=== PATIENT | male | born 1975 | race Hispanic/Latino ===

== ENCOUNTER 2020-07-03 | Emergency (ER) | payer OTHER, MEDICAID ==
[~2020-07-03] MED LIST: CEPHALEXIN500 MG OR; LORTAB 5 OR; METFORMIN500 MG PO; ZOFRAN4 MG/TAB PO
[2020-07-03] MEDS ORDERED: LIPITOR40 M1 PO (17:42)
[2020-07-03] MEDS ORDERED: LISINOPRIL2.5 MG PO (17:42)
[2020-07-03] MEDS ORDERED: FISH OIL1 CAP (17:43)
[2020-07-03] MEDS ORDERED: SINGULAIR10 MG PO (17:43)
[2020-07-03] MEDS ORDERED: INVOKAMET 150-51 TAB (17:44)
[2020-07-03 17:50] LABS: HEMATOCRIT 44.1 % (39.0-50.0); IMMATURE GRANULOCYTES 0.5 % (0.0-5.0); MEAN CELL VOLUME 83.4 fL CALC (80.0-100.0); MEAN CORPUSCULAR HGB 28.4 pG CALC (26.0-32.0); NEUT# 3.23 thou/uL (1.82-7.42); RED BLOOD COUNT 5.29 mill/uL (4.70-6.10); RED CELL DISTRI WIDTH 13.5 % (11.5-15.5)
[2020-07-03 18:03] LABS: ACT PARTIAL THROMBO TIME 26.9 SECONDS (20.0-32.5); ALBUMIN 4.4 g/dL (3.2-5.0); ALKALINE PHOSPHATASE 86 u/l (38-126); AMYLASE 46 u/l (30-110); BUN 15 mg/dL (9-20); BUN/CREATININE RATIO 19 (12-20 (CALC)); CARBON DIOXIDE 27 mmol/l (22-30); CHLORIDE 97 mmol/l (95-108); CREATININE 0.8 mg/dL (0.7-1.3); GFR > 60 ML/MIN (>=60 (CALC)); GFR FOR AFR.AMER. > 60 ML/MIN (>=60 (CALC)); INTERNATIONAL NORMALIZED RATIO 1.1 RATIO (0.7-1.3); LIPASE 48 u/l (23-300); POTASSIUM 3.9 mmol/l (3.5-5.1); PROTHROMBIN TIME 10.8 SECONDS (9.0-12.5); SGOT/AST 29 u/l (17-59); TOTAL PROTEIN 8.2 g/dL (6.3-8.2)
[2020-07-03 18:04] LABS: ANION GAP 12 (6-22 (CALC)); BILIRUBIN, TOTAL 1.2 mg/dL (0.0-1.4); SODIUM 132 mmol/l (137-146)
[2020-07-03 18:17] LABS: URINE BILIRUBIN - DIPSTICK NEGATIVE (NEGATIVE); URINE BLOOD DIPSTICK LARGE (NEGATIVE); URINE COLOR YELLOW; URINE GLUCOSE - DIPSTICK >=1000 mg/dL (NEGATIVE); URINE KETONE 15 mg/dL (NEGATIVE); URINE LEUK ESTERASE NEGATIVE (NEGATIVE); URINE PH 5.5 (4.5-8.0); URINE PROTEIN - DIPSTICK >=300 mg/dL (NEG-TRACE); URINE SPECIFIC GRAVITY >=1.030; URINE UROBILINOGEN - DIPSTICK 0.2 E.U./dL (0.2)
[2020-07-03 18:18] LABS: URINE NITRITE - DIPSTICK NEGATIVE (Negative)
[2020-07-03 18:22] LABS: URINE RBC 0-2 RBC/hpf (0-5)
[2020-07-03] MEDS ORDERED: LOMOTIL2.5 MG PO (19:52)
== END 2020-07-03 21:07 | disposition home or self-care (01) | DRG 392 ==
DX: R19.7 Diarrhea, unspecified (principal); R10.84 Generalized abdominal pain; I10 Essential (primary) hypertension; E11.9 Type 2 diabetes mellitus without complications; E78.5 Hyperlipidemia, unspecified; Z79.84 Long term (current) use of oral hypoglycemic drugs; Z20.822 Contact with and (suspected) exposure to COVID-19
CPT/HCPCS: J0131; Q9967

== ENCOUNTER 2020-09-08 20:11 | Emergency (ER) | payer OTHER, MEDICAID ==
[~2020-09-08] VITALS: Ht 180.3 cm; Wt 116.0 kg
[~2020-09-08 20:11] MED LIST changes: +FISH OIL1 CAP; +INVOKAMET 150-51 TAB; +LIPITOR40 M1 PO; +LISINOPRIL2.5 MG PO; +LOMOTIL2.5 MG PO; +SINGULAIR10 MG PO
[2020-09-08] MEDS ORDERED: GLYBURIDE2.5 M1 PO (20:51)
[2020-09-08] MEDS ORDERED: METFORMIN HCL500 M2 PO (20:51)
[2020-09-08] MEDS ORDERED: ASPIRIN81 MG PO (20:52)
[2020-09-08] MEDS ORDERED: VITAMIN B-12500 MCG PO (20:52)
[2020-09-08 21:20] LABS: HEMATOCRIT 43.9 % (39.0-50.0); HEMOGLOBIN 15.4 g/dl (14.0-18.0); IMMATURE GRANULOCYTES 0.1 % (0.0-5.0); MEAN CELL VOLUME 82.4 fL CALC (80.0-100.0); MEAN CORPUSCULAR HGB 28.9 pG CALC (26.0-32.0); MEAN CORPUSCULAR HGB CONC 35.1 g/dL CAL (32.0-36.0); NEUT# 5.21 thou/uL (1.82-7.42); RED BLOOD COUNT 5.33 mill/uL (4.70-6.10); RED CELL DISTRI WIDTH 12.8 % (11.5-15.5)
[2020-09-08 21:22] LABS: URINE BILIRUBIN - DIPSTICK NEGATIVE (NEGATIVE); URINE BLOOD DIPSTICK TRACE-INTACT (NEGATIVE); URINE COLOR YELLOW; URINE GLUCOSE - DIPSTICK >=1000 mg/dL (NEGATIVE); URINE KETONE NEGATIVE (NEGATIVE); URINE LEUK ESTERASE NEGATIVE (NEGATIVE); URINE PH 5.5 (4.5-8.0); URINE PROTEIN - DIPSTICK NEGATIVE (NEG-TRACE); URINE UROBILINOGEN - DIPSTICK 0.2 E.U./dL (0.2)
[2020-09-08 21:25] LABS: URINE NITRITE - DIPSTICK NEGATIVE (Negative)
[2020-09-08 21:36] LABS: ALBUMIN 4.3 g/dL (3.2-5.0); ALKALINE PHOSPHATASE 111 u/l (38-126); ANION GAP 15 (6-22 (CALC)); BUN 21 mg/dL (9-20); BUN/CREATININE RATIO 30 (12-20 (CALC)); CARBON DIOXIDE 24 mmol/l (22-30); CHLORIDE 102 mmol/l (95-108); CREATININE 0.7 mg/dL (0.7-1.3); GFR > 60 ML/MIN (>=60 (CALC)); GFR FOR AFR.AMER. > 60 ML/MIN (>=60 (CALC)); POTASSIUM 4.2 mmol/l (3.5-5.1); SGOT/AST 26 u/l (17-59); SODIUM 137 mmol/l (137-146); TOTAL PROTEIN 7.6 g/dL (6.3-8.2)
[2020-09-08 21:38] LABS: BILIRUBIN, TOTAL 0.3 mg/dL (0.0-1.4)
[2020-09-08] MEDS ORDERED: FLEXERIL5 M1 PO (22:12)
[2020-09-08] MEDS ORDERED: MOTRIN800 MG PO (22:12)
[2020-09-08 22:24] VITALS: BP 123/74
== END 2020-09-08 22:31 | disposition home or self-care (01) | DRG 552 ==
LOC: ED 20:11
DX: M54.5 Low back pain (principal); E11.9 Type 2 diabetes mellitus without complications; I10 Essential (primary) hypertension; E78.00 Pure hypercholesterolemia, unspecified; J45.909 Unspecified asthma, uncomplicated; Z79.84 Long term (current) use of oral hypoglycemic drugs

== ENCOUNTER 2021-10-30 10:36 | Emergency (ER) | payer OTHER, MEDICAID ==
[~2021-10-30] VITALS: Ht 180.3 cm; Wt 116.3 kg
[2021-10-30] VITALS (19 sets, daily range): BP systolic 117–139; BP diastolic 72–97
[~2021-10-30 10:36] MED LIST changes: +ASPIRIN81 MG PO; +FLEXERIL5 M1 PO; +GLYBURIDE2.5 M1 PO; +METFORMIN HCL500 M2 PO; +MOTRIN800 MG PO; +VITAMIN B-12500 MCG PO
[2021-10-30 11:19] LABS: HEMATOCRIT 42.9 % (39.0-50.0); HEMOGLOBIN 15.1 g/dl (14.0-18.0); IMMATURE GRANULOCYTES 0.3 % (0.0-5.0); MEAN CELL VOLUME 82.8 fL CALC (80.0-100.0); MEAN CORPUSCULAR HGB 29.2 pG CALC (26.0-32.0); MEAN CORPUSCULAR HGB CONC 35.2 g/dL CAL (32.0-36.0); NEUT# 5.74 thou/uL (1.82-7.42); RED BLOOD COUNT 5.18 mill/uL (4.70-6.10); RED CELL DISTRI WIDTH 12.7 % (11.5-15.5)
[2021-10-30 11:28] LABS: ALBUMIN 4.6 g/dL (3.2-5.0); ALKALINE PHOSPHATASE 100 u/l (38-126); ANION GAP 16 (6-22 (CALC)); BUN 15 mg/dL (9-20); BUN/CREATININE RATIO 27 (12-20 (CALC)); CARBON DIOXIDE 26 mmol/l (22-30); CHLORIDE 99 mmol/l (95-108); CREATININE 0.6 mg/dL (0.7-1.3); GFR FOR AFR.AMER. > 60 ML/MIN (>=60 (CALC)); GFR OTHER RACES > 60 ML/MIN (>=60 (CALC)); POTASSIUM 4.9 mmol/l (3.5-5.1); SGOT/AST 36 u/l (17-59); SODIUM 137 mmol/l (137-146); TOTAL PROTEIN 8.1 g/dL (6.3-8.2)
[2021-10-30 11:35] LABS: BILIRUBIN, TOTAL 0.7 mg/dL (0.0-1.4)
[2021-10-30] MEDS ORDERED: TRAMADOL HYDROC50 M1 PO (14:41)
[2021-10-30] MEDS ORDERED: ATIVAN1 M1 PO (14:41)
== END 2021-10-30 14:55 | disposition home or self-care (01) | DRG 918 ==
LOC: ED 10:36
PROVIDERS: Family Medicine
DX: T63.311A Toxic effect of venom of black widow spider, accidental (unintentional), initial encounter (principal); R07.89 Other chest pain; M79.10 Myalgia, unspecified site; E66.9 Obesity, unspecified; I10 Essential (primary) hypertension; E11.9 Type 2 diabetes mellitus without complications; E78.00 Pure hypercholesterolemia, unspecified; J45.909 Unspecified asthma, uncomplicated; Z79.84 Long term (current) use of oral hypoglycemic drugs
CPT/HCPCS: J2060

== ENCOUNTER 2022-05-01 10:00 | Emergency (ER) | payer OTHER, MEDICAID ==
[~2022-05-01] VITALS: Ht 180.3 cm; Wt 111.0 kg
[~2022-05-01 10:00] MED LIST changes: +ATIVAN1 M1 PO; +TRAMADOL HYDROC50 M1 PO
[2022-05-01 10:16] VITALS: BP 111/63
[2022-05-01] MEDS ORDERED: TRULICITY4.5 MG/0.5 SC (10:21)
[2022-05-01 10:35] LABS: BASO% 0.3 % (0-3); EOS% 1.3 % (0-8); HEMATOCRIT 44.6 % (39.0-50.0); HEMOGLOBIN 14.9 g/dl (14.0-18.0); IMMATURE GRANULOCYTES 0.3 % (0.0-5.0); LYMPH% 27.4 % (15-41); MEAN CELL VOLUME 83.5 fL CALC (80.0-100.0); MEAN CORPUSCULAR HGB 27.9 pG CALC (26.0-32.0); MEAN CORPUSCULAR HGB CONC 33.4 g/dL CAL (32.0-36.0); MONO% 14.7 % (2-13); NEUT# 2.17 thou/uL (1.82-7.42); RED BLOOD COUNT 5.34 mill/uL (4.70-6.10); RED CELL DISTRI WIDTH 13.1 % (11.5-15.5)
[2022-05-01 10:47] LABS: ALBUMIN 4.5 g/dL (3.2-5.0); ALKALINE PHOSPHATASE 73 u/l (38-126); ANION GAP 15 (6-22 (CALC)); BILIRUBIN, TOTAL 0.8 mg/dL (0.2-1.3); BUN 14 mg/dL (9-20); BUN/CREATININE RATIO 18 (12-20 (CALC)); CARBON DIOXIDE 21 mmol/l (22-30); CHLORIDE 105 mmol/l (95-108); CREATININE 0.8 mg/dL (0.7-1.3); GFR FOR AFR.AMER. > 60 ML/MIN (>=60 (CALC)); GFR OTHER RACES > 60 ML/MIN (>=60 (CALC)); POTASSIUM 4.2 mmol/l (3.5-5.1); SGOT/AST 32 u/l (17-59); SODIUM 137 mmol/l (137-146); TOTAL PROTEIN 8.2 g/dL (6.3-8.2)
[2022-05-01] MEDS ORDERED: TAM75CAP PO (11:15)
[2022-05-01] MEDS ORDERED: ZOFRAN4 MG/TAB PO (11:15)
[2022-05-01 11:55] VITALS: BP 111/63
== END 2022-05-01 11:55 | disposition home or self-care (01) | DRG 153 ==
LOC: ED 10:00
PROVIDERS: Family Medicine
DX: J11.1 Influenza due to unidentified influenza virus with other respiratory manifestations (principal); Z20.822 Contact with and (suspected) exposure to COVID-19; E11.9 Type 2 diabetes mellitus without complications; Z79.84 Long term (current) use of oral hypoglycemic drugs; I10 Essential (primary) hypertension; R11.2 Nausea with vomiting, unspecified

== ENCOUNTER 2022-09-25 12:27 | Emergency (ER) | payer OTHER, MEDICAID ==
[2022-09-25] VITALS (11 sets, daily range): BP systolic 99–122; BP diastolic 59–74
[~2022-09-25] VITALS: Ht 180.3 cm; Wt 115.2 kg
[~2022-09-25 12:27] MED LIST changes: +TAM75CAP PO; +TRULICITY4.5 MG/0.5 SC
[2022-09-25 13:40] LABS: BASO% 0.6 % (0-3); HEMATOCRIT 44.6 % (39.0-50.0); HEMOGLOBIN 15.1 g/dl (14.0-18.0); IMMATURE GRANULOCYTES 0.2 % (0.0-5.0); LYMPH% 41.1 % (15-41); MEAN CELL VOLUME 83.8 fL CALC (80.0-100.0); MEAN CORPUSCULAR HGB 28.4 pG CALC (26.0-32.0); MEAN CORPUSCULAR HGB CONC 33.9 g/dL CAL (32.0-36.0); MONO% 7.9 % (2-13); NEUT# 2.38 thou/uL (1.82-7.42); NEUT% 48.2 % (42-76); RED BLOOD COUNT 5.32 mill/uL (4.70-6.10)
[2022-09-25 13:52] LABS: ALBUMIN 4.8 g/dL (3.2-5.0); ALKALINE PHOSPHATASE 98 u/l (38-126); ANION GAP 15 (6-22 (CALC)); BILIRUBIN, TOTAL 0.9 mg/dL (0.2-1.3); BUN 18 mg/dL (9-20); BUN/CREATININE RATIO 24 (12-20 (CALC)); CARBON DIOXIDE 23 mmol/l (22-30); CHLORIDE 105 mmol/l (95-108); CREATININE 0.8 mg/dL (0.7-1.3); GFR FOR AFR.AMER. > 60 ML/MIN (>=60 (CALC)); GFR OTHER RACES > 60 ML/MIN (>=60 (CALC)); POTASSIUM 4.1 mmol/l (3.5-5.1); SGOT/AST 29 u/l (17-59); SODIUM 139 mmol/l (137-146); TOTAL PROTEIN 8.4 g/dL (6.3-8.2)
[2022-09-25] MEDS ORDERED: TOBRADEX OU (18:12)
== END 2022-09-25 18:18 | disposition home or self-care (01) | DRG 125 ==
LOC: ED 12:27
PROVIDERS: Family Medicine
DX: H10.33 Unspecified acute conjunctivitis, bilateral (principal); I10 Essential (primary) hypertension; E11.9 Type 2 diabetes mellitus without complications; E78.00 Pure hypercholesterolemia, unspecified; J45.909 Unspecified asthma, uncomplicated; Z79.84 Long term (current) use of oral hypoglycemic drugs